=== PATIENT | male | born 1940 | race Caucasian/White ===

== ENCOUNTER 2021-05-11 23:24 | Inpatient (IN) ==
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
[2021-05-12 00:39] LABS: Basophils # (Auto) 0.01 K/mcL (0.00-0.30); Basophils % (Auto) 0.1 % (0.0-2.0); Eosinophils # (Auto) 0 K/mcL (0.00-0.70); Eosinophils % (Auto) 0 % (0.0-7.0); Hematocrit 33.8 % (40.1-51.0); Hemoglobin 11.7 g/dL (13.7-17.5); Lymphocytes % (Auto) 5.3 % (15.5-49.0); Mean Cell Volume 90.9 fL (80.0-100.0); Mean Corpuscular HGB Conc 34.6 g/dL (31.0-36.0); Mean Platelet Volume 11.4 fL (7.4-10.4); Monocytes # (Auto) 0.26 K/mcL (0.10-0.90); Monocytes % (Auto) 3.4 % (1.0-12.0); Neutrophils % (Auto) 91.2 % (38.0-78.0); Platelet Count 221 K/mcL (140-440); RBC 3.72 M/mcL (4.63-6.08); Red Cell Distribution Width 16.3 % (11.5-14.5); WBC 7.6 K/mcL (4.5-11.0)
[2021-05-12 01:06] LABS: ALT/SGPT 26 U/L (<40); AST/SGOT 66 U/L (<40); Albumin/Globulin Ratio 0.8 (1.0-2.3); Alkaline Phosphatase 102 U/L (39-117); Bilirubin,Total 1.1 mg/dL (0.1-1.0); Blood Urea Nitrogen 37 mg/dL (8-23); Calcium 8.3 mg/dL (8.6-10.4); Carbon Dioxide 17 mmol/L (22-30); Chloride 101 mmol/L (96-108); Globulin 3.8 gm/dL (2.2-3.7); Glomerular Filtration Rate 35; Glucose 141 mg/dL (70-105)
[2021-05-12] MEDS ORDERED: DEXAMETHASONE 10 MG/ML VIAL IV ONE (03:41)
[2021-05-12] MEDS ORDERED: GABAPENTIN 100 MG CAPSULE PO PRN (08:56)
[2021-05-12] MEDS ORDERED: ACETAMINOPHEN 325 MG TABLET PO PRN (08:58)
[2021-05-12] MEDS ORDERED: ONDANSETRON 4 MG/2 ML VIAL IV PRN (08:58)
[2021-05-12] MEDS ORDERED: DEXTROSE 31 GM ORAL.SUSP PO PRN (09:03)
[2021-05-12] MEDS ORDERED: DEXTROSE 50% 50 ML VIAL IV PRN (09:03)
[2021-05-12] MEDS ORDERED: IPRATROPIUM/ALBUTEROL 3 ML AMPUL.NEB NEB PRN (09:04)
[2021-05-12] MEDS ORDERED: guaiFENesin/DEXTROMETHORPHAN ORAL SOL PO PRN (09:04)
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
[2021-05-12] MEDS ORDERED: REMDESIVIR 200 MG in 0.9 % SODIUM CHLORIDE 250 ML IV ONE (10:00)
[2021-05-12 10:20] LABS: Basophils # (Auto) 0.01 K/mcL (0.00-0.30); Basophils % (Auto) 0.1 % (0.0-2.0); Eosinophils # (Auto) 0 K/mcL (0.00-0.70); Eosinophils % (Auto) 0 % (0.0-7.0); Hematocrit 34.2 % (40.1-51.0); Lymphocytes # (Auto) 0.37 K/mcL (1.50-4.80); Lymphocytes % (Auto) 4.4 % (15.5-49.0); Mean Cell Volume 89.3 fL (80.0-100.0); Mean Corpuscular HGB Conc 35.1 g/dL (31.0-36.0); Mean Platelet Volume 11.5 fL (7.4-10.4); Monocytes # (Auto) 0.28 K/mcL (0.10-0.90); Monocytes % (Auto) 3.3 % (1.0-12.0); Neutrophils % (Auto) 92.2 % (38.0-78.0); Platelet Count 228 K/mcL (140-440); RBC 3.83 M/mcL (4.63-6.08); Red Cell Distribution Width 16.6 % (11.5-14.5); WBC 8.4 K/mcL (4.5-11.0)
[2021-05-12] MEDS: DOCUSATE SODIUM 100 MG CAPSULE PO SCH ×2 (10:24→20:32)
[2021-05-12] MEDS: INSULIN NPH, HUMAN 1 UNIT/0.01 ML UNIT SQ SCH (10:24)
[2021-05-12] MEDS: CLOPIDOGREL 75 MG TABLET PO SCH (10:24)
[2021-05-12] MEDS: METOPROLOL TARTRATE 25 MG TABLET PO SCH ×2 (10:24→20:32)
[2021-05-12] MEDS: DILTIAZEM 120 MG CAP.XL.24H PO SCH (10:24)
[2021-05-12] MEDS: ENOXAPARIN 40 MG/0.4 ML SYRINGE SQ SCH ×2 (10:25→20:31)
[2021-05-12] MEDS: FLUTICASONE PROPIONATE SPRAY.NAS NS SCH ×2 (10:25→21:25)
[2021-05-12] MEDS: FINASTERIDE 5 MG TABLET PO SCH (10:25)
[2021-05-12 10:29] LABS: Lactate Dehydrogenase 419 U/L (135-225)
[2021-05-12 10:30] LABS: ALT/SGPT 27 U/L (<40); AST/SGOT 74 U/L (<40); Albumin 3.1 gm/dL (3.2-5.2); Albumin/Globulin Ratio 0.8 (1.0-2.3); Alkaline Phosphatase 108 U/L (39-117); Bilirubin,Total 1.1 mg/dL (0.1-1.0); Blood Urea Nitrogen 36 mg/dL (8-23); Calcium 8.4 mg/dL (8.6-10.4); Carbon Dioxide 18 mmol/L (22-30); Chloride 95 mmol/L (96-108); Globulin 3.8 gm/dL (2.2-3.7); Glomerular Filtration Rate 35; Glucose 231 mg/dL (70-105)
[2021-05-12 10:30] LABS: Hemoglobin A1C 7.4 % Hgb (4.0-6.0)
[2021-05-12 10:42] LABS: Ferritin 474.6 ng/mL (30.0-400.0)
[2021-05-12 11:07] LABS: Prothrombin Time 14.1 sec (11.9-14.5)
[2021-05-12] MEDS: INSULIN LISPRO 1 UNIT/0.01 ML UNIT SQ SCH ×3 (11:53→20:31)
[2021-05-12] MEDS: 0.9 % SODIUM CHLORIDE 10 ML SYRINGE IV SCH ×2 (12:12→21:45)
[2021-05-12] MEDS: FUROSEMIDE 20 MG TABLET PO SCH (16:30)
[2021-05-12] MEDS: OMEPRAZOLE 20 MG CAPSULE PO SCH (17:04)
[2021-05-12] MEDS: TAMSULOSIN 0.4 MG CAPSULE PO SCH (20:32)
[2021-05-12] MEDS: LISINOPRIL 10 MG TABLET PO SCH (20:32)
[2021-05-12] MEDS: SENNOSIDES 1 TABLET PO SCH (20:32)
[2021-05-12] MEDS: MONTELUKAST 10 MG TABLET PO SCH (20:32)
[2021-05-12] MEDS: ATORVASTATIN 40 MG TABLET PO SCH (20:33)
[2021-05-12] MEDS ORDERED: ZOLPIDEM 5 MG TABLET PO PRN (21:00)
[2021-05-12] MEDS ORDERED: INSULIN REGULAR, HUMAN 1 UNIT/0.01 ML UNIT SQ SCH (21:00)
[2021-05-12] MEDS: Dorzolamide-Timolol [Cosopt] 22.3-6.8 mg/mL drops OU SCH (21:25)
[2021-05-13] MEDS: 0.9 % SODIUM CHLORIDE 10 ML SYRINGE IV SCH ×3 (04:35→21:21)
[2021-05-13 06:52] LABS: Basophils # (Auto) 0.01 K/mcL (0.00-0.30); Basophils % (Auto) 0.1 % (0.0-2.0); Eosinophils # (Auto) 0 K/mcL (0.00-0.70); Eosinophils % (Auto) 0 % (0.0-7.0); Hematocrit 33.2 % (40.1-51.0); Hemoglobin 11.3 g/dL (13.7-17.5); Lymphocytes # (Auto) 0.45 K/mcL (1.50-4.80); Lymphocytes % (Auto) 5.7 % (15.5-49.0); Mean Cell Volume 88.3 fL (80.0-100.0); Mean Platelet Volume 11.5 fL (7.4-10.4); Monocytes # (Auto) 0.47 K/mcL (0.10-0.90); Monocytes % (Auto) 5.9 % (1.0-12.0); Neutrophils % (Auto) 88.3 % (38.0-78.0); Platelet Count 228 K/mcL (140-440); RBC 3.76 M/mcL (4.63-6.08); Red Cell Distribution Width 16.1 % (11.5-14.5)
[2021-05-13 07:23] LABS: ALT/SGPT 32 U/L (<40); AST/SGOT 78 U/L (<40); Albumin 2.8 gm/dL (3.2-5.2); Albumin/Globulin Ratio 0.7 (1.0-2.3); Alkaline Phosphatase 107 U/L (39-117); Bilirubin,Total 0.8 mg/dL (0.1-1.0); Blood Urea Nitrogen 38 mg/dL (8-23); Calcium 8.2 mg/dL (8.6-10.4); Carbon Dioxide 20 mmol/L (22-30); Chloride 100 mmol/L (96-108); Globulin 3.9 gm/dL (2.2-3.7); Glomerular Filtration Rate 43; Glucose 159 mg/dL (70-105)
[2021-05-13] MEDS: FUROSEMIDE 20 MG TABLET PO SCH ×2 (07:51→15:50)
[2021-05-13] MEDS: LEVOTHYROXINE 125 MCG TABLET PO SCH (07:51)
[2021-05-13] MEDS: OMEPRAZOLE 20 MG CAPSULE PO SCH ×2 (07:52→15:51)
[2021-05-13] MEDS: CLOPIDOGREL 75 MG TABLET PO SCH (09:25)
[2021-05-13] MEDS: DOCUSATE SODIUM 100 MG CAPSULE PO SCH ×2 (09:25→21:20)
[2021-05-13] MEDS: MULTIVIT,THER IRON,CA,FA & MIN 1 TABLET PO SCH (09:25)
[2021-05-13] MEDS: INSULIN NPH, HUMAN 1 UNIT/0.01 ML UNIT SQ SCH (09:26)
[2021-05-13] MEDS: ENOXAPARIN 40 MG/0.4 ML SYRINGE SQ SCH ×2 (09:29→21:19)
[2021-05-13] MEDS: DILTIAZEM 120 MG CAP.XL.24H PO SCH (09:33)
[2021-05-13] MEDS: METOPROLOL TARTRATE 25 MG TABLET PO SCH ×2 (09:36→20:03)
[2021-05-13] MEDS: INSULIN LISPRO 1 UNIT/0.01 ML UNIT SQ SCH ×4 (09:37→21:27)
[2021-05-13] MEDS: TADALAFIL 5 MG PO SCH (09:49)
[2021-05-13] MEDS: DEXAMETHASONE 10 MG/ML VIAL IV SCH (10:37)
[2021-05-13] MEDS: REMDESIVIR 100 MG in 0.9 % SODIUM CHLORIDE 250 ML IV SCH (10:38)
[2021-05-13] MEDS: Dorzolamide-Timolol [Cosopt] 22.3-6.8 mg/mL drops OU SCH ×2 (10:38→21:21)
[2021-05-13] MEDS: FLUTICASONE PROPIONATE SPRAY.NAS NS SCH ×2 (10:59→21:21)
--- NOTE | 2021-05-13 11:48 | Internal Med Progress Note ---
SUBJECTIVE Subjective Patient information: Note initiated : 05/13/21 at 11:45 am Service Date, if different from initiated Date: [] Patient: Juan Carlos Parada 80 y/o M admitted on 05/12/21 for SHORTNESS OF BREATH. Chief Complaint: [CoVID pneumonia] Interval history: History of present illness: Mr. Parada is a 80 year old M history of type 2 diabetes, CAD status post CABG x4, status post cardiac pacemaker placement, essential HTN, chronic kidney disease stage III, hypothyroidism, depression, presenting with 10-day history of general body weakness and dyspnea on exertions. He has been vaccinated against Covid with 2 shots by November 2020. He denies any recent travel or sick contact. Over the 10 days, he experienced gradual onset, gradually worsening general body weakness and dyspnea on exertions. He is also committing of nonproductive cough without any sputum productions. He is denying any respiratory wheezings. He denies any chest pain or muscle aches. He denies any subjective fever, chills, or diaphoresis. He was being tested positive for Covid in the ED. He was started on supplemental oxygen's on the floor. 05/13: Afebrile overnight. Been on supplemental oxygen up to 2L/min via nasal cannula. c/o SOB. c/o nonproductive cough. Denies sputum production. Denies wheezing. Denies chest pain. Denies fever or chills. Denies general body weakness. Constitutional Vitals: Vital Signs Temp Pulse Resp BP Pulse Ox 36.3 C 64 22 111/68 93 05/13/21 11:41 05/13/21 11:41 05/13/21 11:41 05/13/21 11:41 05/13/21 11:41 Period Temp Pulse Resp BP Sys/Meraz Pulse Ox Last 24 Hr 35.8 C-36.7 C 50-64 18-24 95-143/51-69 93-95 Intake and Output 05/12/21 05/13/21 05/13/21 21:59 05:59 13:59 Intake Total 400 550 Output Total 700 700 Balance -300 -150 Weight 104.326 kg Intake & Output: Intake & Output 05/12/21 05/13/21 05/13/21 21:59 05:59 13:59 Intake Total 400 550 Output Total 700 700 Balance -300 -150 Weight 104.326 kg Intake: Oral 400 550 Output: Urine Catheter Amount 400 Void Amount 700 300 Other: Meal Dinner Percent of Meal Consumed 50% Urine Appearance Clear Clear Urine Color Bright Yellow Dark Yellow Urine Odor Normal General appearance: cooperative and no acute distress Head Head exam: Present atraumatic and normocephalic Eye Eye exam: Present EOMI and PERRL ENT ENT exam: Present mucous membranes moist, normal exam and normal external ear exam Additional comments: Bilateral hard of hearing Nasal cannula in place Neck Neck exam: Present normal inspection; Absent lymphadenopathy, tenderness and thyromegaly Respiratory Respiratory exam: Present decreased breath sounds and rhonchi; Absent accessory muscle use, respiratory distress and wheezes Cardiovascular Cardiovascular exam: Present normal rate and rhythm; Absent JVD GI/Abdominal GI/Abdominal exam: Present normal bowel sounds and soft; Absent organomegaly and tenderness Rectal Rectal exam: Present deferred Extremities Exam Extremities exam: Present full ROM, normal capillary refill and normal inspection; Absent tenderness Neurological Exam Neurological exam: Present alert, CN II-XII intact and oriented X3; Absent motor sensory deficit Psychiatric Psychiatric exam: Present normal affect and normal mood; Absent anxious and depressed Skin Skin exam: Present dry and intact OBJ DATA Labs CBC & Chem 7: 05/13/21 05:27 05/13/21 05:27 Labs: Abnormal Lab Results 05/13/21 05/13/21 05/12/21 05:27 05:27 09:26 RBC 3.76 L Hgb 11.3 L Hct 33.2 L RDW 16.1 H MPV 11.5 H Neut % (Auto) 88.3 H Lymph % (Auto) 5.7 L Lymph # (Auto) 0.45 L Fibrinogen D-Dimer Sodium Chloride Carbon Dioxide 20 L BUN 38 H Creatinine 1.5 H Glucose 159 H Hemoglobin A1c Calcium 8.2 L Ferritin Total Bilirubin AST 78 H Lactate Dehydrogenase Troponin T C-Reactive Protein NT-Pro-B Natriuret Pep Albumin 2.8 L Globulin 3.9 H Albumin/Globulin Ratio 0.7 L Procalcitonin 0.27 H 05/12/21 05/12/21 05/12/21 09:26 09:26 09:21 RBC Hgb Hct RDW MPV Neut % (Auto) Lymph % (Auto) Lymph # (Auto) Fibrinogen 601 H D-Dimer 1.35 H Sodium Chloride Carbon Dioxide BUN Creatinine Glucose Hemoglobin A1c 7.4 H Calcium Ferritin 474.6 H Total Bilirubin AST Lactate Dehydrogenase 419 H Troponin T C-Reactive Protein 12.40 H NT-Pro-B Natriuret Pep Albumin Globulin Albumin/Globulin Ratio Procalcitonin 05/12/21 05/12/21 05/12/21 09:08 09:08 02:35 RBC 3.83 L Hgb 12.0 L Hct 34.2 L RDW 16.6 H MPV 11.5 H Neut % (Auto) 92.2 H Lymph % (Auto) 4.4 L Lymph # (Auto) 0.37 L Fibrinogen D-Dimer Sodium 128 L Chloride 95 L Carbon Dioxide 18 L BUN 36 H Creatinine 1.8 H Glucose 231 H Hemoglobin A1c Calcium 8.4 L Ferritin Total Bilirubin 1.1 H AST 74 H Lactate Dehydrogenase Troponin T 0.06 H* C-Reactive Protein NT-Pro-B Natriuret Pep Albumin 3.1 L Globulin 3.8 H Albumin/Globulin Ratio 0.8 L Procalcitonin 05/11/21 05/11/21 05/11/21 23:52 23:52 23:52 RBC 3.72 L Hgb 11.7 L Hct 33.8 L RDW 16.3 H MPV 11.4 H Neut % (Auto) 91.2 H Lymph % (Auto) 5.3 L Lymph # (Auto) 0.40 L Fibrinogen D-Dimer Sodium Chloride Carbon Dioxide 17 L BUN 37 H Creatinine 1.8 H Glucose 141 H Hemoglobin A1c Calcium 8.3 L Ferritin Total Bilirubin 1.1 H AST 66 H Lactate Dehydrogenase Troponin T 0.05 H* C-Reactive Protein NT-Pro-B Natriuret Pep 2996.0 H Albumin 3.0 L Globulin 3.8 H Albumin/Globulin Ratio 0.8 L Procalcitonin Meds: Medications Acetaminophen (Acetaminophen 325 Mg Tablet) 650 mg PO Q6HP PRN; Protocol PRN Reason: Per Pain Protocol/Fever > 101 Albuterol/Ipratropium (Ipratropium/Albuterol 3 Ml Ampul.Neb) 3 ml NEB Q4HP PRN PRN Reason: Shortness Of Breath Atorvastatin Calcium (Atorvastatin 40 Mg Tablet) 40 mg PO HS [facility] Last Admin: 05/12/21 20:33 Dose: 40 mg Documented by: Clopidogrel Bisulfate (Clopidogrel 75 Mg Tablet) 75 mg PO QDAY [facility] Last Admin: 05/13/21 09:25 Dose: 75 mg Documented by: Dexamethasone (Dexamethasone 10 Mg/Ml Vial) 6 mg IV DAILY [facility] Last Admin: 05/13/21 10:37 Dose: 6 mg Documented by: Dextrose (Dextrose 50% 50 Ml Vial) 0 ml IV UD PRN PRN Reason: Hypoglycemia Diagnostic Test (Pha) (Accu-Chek 1 Each Strip) 1 each FS ACHS [facility] Last Admin: 05/13/21 02:05 Dose: 1 each Documented by: Diltiazem HCl (Diltiazem 120 Mg Cap.Xl.24h) 120 mg PO QAM [facility] Last Admin: 05/13/21 09:33 Dose: 120 mg Documented by: Docusate Sodium (Docusate Sodium 100 Mg Capsule) 100 mg PO BID [facility] Last Admin: 05/13/21 09:25 Dose: 100 mg Documented by: Enoxaparin Sodium (Enoxaparin 40 Mg/0.4 Ml Syringe) 40 mg SQ BID [facility] Last Admin: 05/13/21 09:29 Dose: 40 mg Documented by: Finasteride (Finasteride 5 Mg Tablet) 5 mg PO [facility] Fluticasone Propionate (Fluticasone Propionate [place].Sandip) 1 spray NS BID [facility] Last Admin: 05/13/21 10:59 Dose: Not Given Documented by: Furosemide (Furosemide 20 Mg Tablet) 20 mg PO BIDD [facility] Last Admin: 05/13/21 07:51 Dose: 20 mg Documented by: Gabapentin (Gabapentin 100 Mg Capsule) 100 mg PO DAILYP PRN PRN Reason: Pain Glucose (Dextrose 31 Gm Oral.Susp) 15 gm PO PRN PRN PRN Reason: Hypoglycemia Guaifenesin (Guaifenesin/Dextromethorphan Oral Adia) 10 ml PO Q4HP PRN PRN Reason: Cough REMDESIVIR 100 mg/ Sodium (Chloride) 250 mls @ 500 mls/hr IV DAILY@1100 [facility] Stop: 05/16/21 11:29 Last Admin: 05/13/21 10:38 Dose: 500 mls/hr Documented by: Insulin Human Lispro (Insulin Lispro 1 Unit/0.01 Ml Unit) 0 unit SQ ACHS [facility]; Protocol Last Admin: 05/13/21 09:37 Dose: 2 unit Documented by: Insulin Human NPH (Insulin Nph, Human 1 Unit/0.01 Ml Unit) 50 unit SQ QAM [facility] Last Admin: 05/13/21 09:26 Dose: 50 unit Documented by: Insulin Human Regular (Insulin Regular, Human 1 Unit/0.01 Ml Unit) 10 unit SQ QHS [facility] Last Admin: 05/12/21 20:28 Dose: 10 unit Documented by: Iron Carb/Multivit/[place]/Folic Acid (Multivit,Ther Iron,Ca,Fa & Min 1 Tablet) 1 tab PO DAILY [facility] Last Admin: 05/13/21 09:25 Dose: 1 tab Documented by: Levothyroxine Sodium (Levothyroxine 125 Mcg Tablet) 125 mcg PO QAMAC [facility] Last Admin: 05/13/21 07:51 Dose: 125 mcg Documented by: Lisinopril (Lisinopril 10 Mg Tablet) 10 mg PO [facility] Last Admin: 05/12/21 20:32 Dose: 10 mg Documented by: Metoprolol Tartrate (Metoprolol Tartrate 25 Mg Tablet) 25 mg PO BID [facility] Last Admin: 05/13/21 09:36 Dose: 25 mg Documented by: Montelukast Sodium (Montelukast 10 Mg Tablet) 10 mg PO QHS [facility] Last Admin: 05/12/21 20:32 Dose: 10 mg Documented by: Omeprazole (Omeprazole 20 Mg Capsule) 40 mg PO BIDAC [facility] Last Admin: 05/13/21 07:52 Dose: 40 mg Documented by: Ondansetron HCl (Ondansetron 4 Mg/2 Ml Vial) 4 mg IV Q6HP PRN PRN Reason: Nausea And Vomiting Dorzolamide-Timolol [Cosopt] 22.3-6.8 Mg /Ml Drops 1 dose OU BID [facility] Last Admin: 05/13/21 10:38 Dose: 1 dose Documented by: Tadalafil 5 Mg (Tablets) 1 dose PO DAILY [facility] Last Admin: 05/13/21 09:49 Dose: Not Given Documented by: Senna (Sennosides 1 Tablet) 2 tab PO [facility] Last Admin: 05/12/21 20:32 Dose: 2 tab Documented by: Sodium Chloride (0.9 % Sodium Chloride 10 Ml Syringe) 10 ml IV Q8 [facility] Last Admin: 05/13/21 04:35 Dose: 10 ml Documented by: Tamsulosin HCl (Tamsulosin 0.4 Mg Capsule) 0.4 mg PO QHS [facility] Last Admin: 05/12/21 20:32 Dose: 0.4 mg Documented by: Zolpidem Tartrate (Zolpidem 5 Mg Tablet) 5 mg PO HSP PRN PRN Reason: Insomnia A/P Assessment and plan (1) Depression: Status: Chronic (2) Pacemaker: Status: Chronic Comment: 2009 (3) BPH loc w urin obs/LUTS: Status: Chronic Comment: Retains between 200 to 400 cc chronically, does better on medication (4) Hypertension, essential: Status: Chronic (5) Diabetes mellitus with neuropathy: Status: Chronic Qualifiers: Diabetes mellitus type: type 2 Diabetes mellitus lobsterman insulin use: with lobsterman use Qualified Code(s): E11.40 - Type 2 diabetes mellitus with diabetic neuropathy, unspecified; Z79.4 - senior living (current) use of insulin (6) Hypothyroidism: Status: Acute (7) COVID-19: Status: Acute (8) CKD (chronic kidney disease) stage 3, GFR 30-59 ml/min: Status: Chronic Qualifiers: Chronic kidney disease stage 3 subtype: stage 3a (GFR 45-59) Qualified Code(s): N18.31 - Chronic kidney disease, stage 3a Narrative A/P Narrative: Assessment and Plans: 1. CoVID pneumonia: Stays in inpatient med surg with telemetry Isolation: airborne and contact Inflammatory markers Blood culture X2, no growth to date Remdesivir Dexamethasone Lovenox Lasix Robitussin DM PRN cough DuoNEB NEB q4hr PRN wheezing or SOB Tylenlol PRN fever cbc w/ auto diff in the AM to trend WBC Supplemental oxygen titrate to keep spo2 >=92% 2. h/o CAD s/p CABG X4 and pacemaker placement: Plavix Metoprolol tartrate Diltiazem Lisinopril Statin 3. Essential HTN: Metoprolol tartrate Diltiazem Lisinopril Statin 4. Hypothyroidism: Continue thyroid replacement therapy 5. BPH: Finasteride Tamsulosin 6. T2DM: HgA1c Hold any oral hypoglycemics Insulin home regimen Correctional scale insulin AC HS Accu Chek AC HS Hypoglycemia protocol Diabetic diet 7. CKD stage III: Avoid nephrotoxic agents Saline lock CMP daily to trend kidney functions Lisinopril GI ppx: continue oral PPI from home regimen DVT ppx: Lovenox Code status: Full Prognosis: guarded Disposition: inpatient med surg; PT OT evaluation for placement planning Time Spent With Patient Time: Total time spent is greater than 50% in coordination of care (as documented) at patient's floor/unit and/or counseling patient: QUALITY VTE Deep Vein Thrombosis/Pulmonary Embolism Present on Admission: No
[2021-05-13] MEDS: FINASTERIDE 5 MG TABLET PO SCH (17:20)
[2021-05-13] MEDS: LISINOPRIL 10 MG TABLET PO SCH (20:04)
[2021-05-13] MEDS ORDERED: FINASTERIDE 5 MG TABLET PO SCH (21:00)
[2021-05-13] MEDS: TAMSULOSIN 0.4 MG CAPSULE PO SCH (21:20)
[2021-05-13] MEDS: ATORVASTATIN 40 MG TABLET PO SCH (21:20)
[2021-05-13] MEDS: MONTELUKAST 10 MG TABLET PO SCH (21:20)
[2021-05-13] MEDS: SENNOSIDES 1 TABLET PO SCH (21:20)
[2021-05-14] MEDS: 0.9 % SODIUM CHLORIDE 10 ML SYRINGE IV SCH ×2 (08:58→13:49)
[2021-05-14] MEDS: DOCUSATE SODIUM 100 MG CAPSULE PO SCH (08:59)
[2021-05-14] MEDS: MULTIVIT,THER IRON,CA,FA & MIN 1 TABLET PO SCH (08:59)
[2021-05-14] MEDS: LEVOTHYROXINE 125 MCG TABLET PO SCH (08:59)
[2021-05-14] MEDS: OMEPRAZOLE 20 MG CAPSULE PO SCH (08:59)
[2021-05-14] MEDS: FUROSEMIDE 20 MG TABLET PO SCH (08:59)
[2021-05-14] MEDS: CLOPIDOGREL 75 MG TABLET PO SCH (08:59)
[2021-05-14] MEDS: DEXAMETHASONE 10 MG/ML VIAL IV SCH (09:00)
[2021-05-14] MEDS: METOPROLOL TARTRATE 25 MG TABLET PO SCH (09:00)
[2021-05-14] MEDS: DILTIAZEM 120 MG CAP.XL.24H PO SCH (09:00)
[2021-05-14] MEDS: ENOXAPARIN 40 MG/0.4 ML SYRINGE SQ SCH (09:01)
[2021-05-14] MEDS: FLUTICASONE PROPIONATE SPRAY.NAS NS SCH (09:01)
[2021-05-14 09:04] LABS: Basophils # (Auto) 0.01 K/mcL (0.00-0.30); Basophils % (Auto) 0.1 % (0.0-2.0); Eosinophils # (Auto) 0 K/mcL (0.00-0.70); Eosinophils % (Auto) 0 % (0.0-7.0); Hematocrit 35.5 % (40.1-51.0); Hemoglobin 12.5 g/dL (13.7-17.5); Lymphocytes # (Auto) 0.45 K/mcL (1.50-4.80); Lymphocytes % (Auto) 5.4 % (15.5-49.0); Mean Cell Volume 87.7 fL (80.0-100.0); Mean Corpuscular HGB Conc 35.2 g/dL (31.0-36.0); Mean Platelet Volume 11.6 fL (7.4-10.4); Monocytes # (Auto) 0.59 K/mcL (0.10-0.90); Neutrophils % (Auto) 87.5 % (38.0-78.0); Platelet Count 274 K/mcL (140-440); RBC 4.05 M/mcL (4.63-6.08); Red Cell Distribution Width 16.1 % (11.5-14.5); WBC 8.4 K/mcL (4.5-11.0)
[2021-05-14] MEDS: Dorzolamide-Timolol [Cosopt] 22.3-6.8 mg/mL drops OU SCH (09:06)
[2021-05-14] MEDS: TADALAFIL 5 MG PO SCH (09:06)
[2021-05-14 09:18] LABS: ALT/SGPT 48 U/L (<40); AST/SGOT 93 U/L (<40); Albumin 3.2 gm/dL (3.2-5.2); Albumin/Globulin Ratio 0.9 (1.0-2.3); Alkaline Phosphatase 104 U/L (39-117); Bilirubin,Total 0.9 mg/dL (0.1-1.0); Blood Urea Nitrogen 37 mg/dL (8-23); Calcium 8.3 mg/dL (8.6-10.4); Carbon Dioxide 20 mmol/L (22-30); Chloride 98 mmol/L (96-108); Globulin 3.7 gm/dL (2.2-3.7); Glomerular Filtration Rate 51; Glucose 296 mg/dL (70-105)
[2021-05-14] MEDS: INSULIN LISPRO 1 UNIT/0.01 ML UNIT SQ SCH ×2 (09:57→14:04)
[2021-05-14] MEDS ORDERED: DEXTROSE 31 GM ORAL.SUSP PO PRN (12:05)
[2021-05-14] MEDS ORDERED: DEXTROSE 50% 50 ML VIAL IV PRN (12:05)
[2021-05-14] MEDS: REMDESIVIR 100 MG in 0.9 % SODIUM CHLORIDE 250 ML IV SCH (12:20)
--- NOTE | 2021-05-14 12:24 | Discharge Summary ---
Discharge Provider Provider Patient information: Note initiated : 05/14/21 at 12:21 pm Service Date, if different from initiated Date: [] Patient: Juan Carlos Parada 80 y/o M admitted on 05/12/21 for SHORTNESS OF BREATH. Chief Complaint: [CoVID pneumonia] Date of admission: 05/12/21 04:25 Discharge date: 05/14/21 Primary care physician: Bear Sim MD Consults: 05/12/21 Consult to Physician [CONS] Stat Comment: Consulting Provider: Rosalio Landeros Reason For Exam: Physician to Consult Discharge Meds Discharge Medications Home Medications atorvastatin 40 mg PO HS 07/26/16 [History Confirmed 05/12/21 Last Taken 0 03/05/19] levothyroxine 125 mcg PO QAMAC 07/26/16 [History Confirmed 05/12/21 Last Taken 02/13/20] hkdynfwa-awh-aidh fum-folic ac 1 each PO QDAY 07/26/16 [History Confirmed 05/12/21 Last Taken 03/05/19] diltiazem HCl 120 mg capsule,extended release 24 hr 120 mg PO QAM cap 05/28/18 [History Confirmed 05/12/21 Last Taken 03/06/19] finasteride 5 mg tablet 5 mg PO QDAY #30 tab 06/29/20 [Rx Confirmed 05/12/21 Last Taken Unknown] montelukast 10 mg tablet 10 mg PO QHS 10/28/20 [History Confirmed 05/12/21 Last Taken Unknown] tadalafil 5 mg tablet 5 mg PO QDAY #30 tab 11/12/20 [Rx Confirmed 05/12/21 Last Taken Unknown] tamsulosin 0.4 mg capsule 0.4 mg PO QHS #90 cap 02/15/21 [Rx Confirmed 05/12/21 Last Taken Unknown] clopidogrel 75 mg tablet 75 mg PO QDAY 05/11/21 [History Confirmed 05/12/21 Last Taken Unknown] dorzolamide 22.3 mg-timolol 6.8 mg/mL eye drops 1 drp OPHTHALMIC (EYE) BID 05/11/21 [History Confirmed 05/12/21 Last Taken Unknown] enalapril maleate 10 mg tablet 10 mg PO QHS 05/11/21 [History Confirmed 05/12/21 Last Taken Unknown] fluticasone propionate 50 mcg/actuation nasal spray,suspension See Rx Instructions INTRANASAL BID #16 g 05/11/21 [Rx Confirmed 05/12/21 Last Taken Unknown] gabapentin 100 mg capsule 100 mg PO QDAY PRN cap 05/11/21 [History Confirmed 05/12/21 Last Taken Unknown] insulin NPH isoph U-100 human 100 unit/mL subcutaneous suspension 50 unit SUBCUT QAM ml 05/11/21 [History Confirmed 05/12/21 Last Taken Unknown] insulin regular human 100 unit/mL injection solution 10 unit SUBCUT QHS ml 05/11/21 [History Confirmed 05/12/21 Last Taken Unknown] metoprolol tartrate 25 mg tablet 25 mg PO BID tab 05/11/21 [History Confirmed 05/12/21 Last Taken Unknown] omeprazole 40 mg capsule,delayed release 40 mg PO BID cap 05/11/21 [History Confirmed 05/12/21 Last Taken Unknown] diltiazem HCl [Cartia XT] 120 mg PO DAILY 05/12/21 [History Confirmed 05/12/21 Last Taken Unknown] COURSE Hospital Course Hospital course: Patient was admitted on May 12, 2021 for Covid pneumonia. Supplemental oxygen's, remdesivir, dexamethasone, Lovenox, Lasix, were all provided Covid specific treatment. His diabetes will also be managed with insulin therapy. He developed an episode of hypoglycemia with blood sugar 29 during the afternoon of the day to hospitalizations and at that point any scheduled insulin were discontinued and patient was only relying on sliding scale insulin. By day 3 hospitalizations, patient has been tolerating room air for about 12 hours. He has reached clinical stability, and the decision was made to discharge patient home with instructions to follow-up with primary care physician within 2 weeks. All questions were answered prior to patient being physically discharged. Discharge diagnosis: CoVID pneumonia Time Spent with Patient Time attestation: Total time spent providing and/or coordinating discharge services: Patient was admitted on May 12, 2021 for Covid pneumonia. Supplemental oxygen's, remdesivir, dexamethasone, Lovenox, Lasix, were all provided Covid specific treatment. His diabetes will also be managed with insulin therapy. He developed an episode of hypoglycemia with blood sugar 29 during the afternoon of the day to hospitalizations and at that point any scheduled insulin were discontinued and patient was only relying on sliding scale insulin. By day 3 hospitalizations, patient has been tolerating room air for about 12 hours. He has reached clinical stability, and the decision was made to discharge patient home with instructions to follow-up with primary care physician within 2 weeks. All questions were answered prior to patient being physically discharged. EXAM Constitutional Vitals: Temp Pulse Resp BP Pulse Ox 36.2 C 53 L 20 117/63 95 05/14/21 11:41 05/14/21 11:41 05/14/21 11:41 05/14/21 11:41 05/14/21 11:41 General appearance: cooperative and no acute distress Head Head exam: Present atraumatic and normocephalic Eye Eye exam: Present EOMI and PERRL ENT ENT exam: Present mucous membranes moist, normal exam and normal external ear exam Additional comments: Bilateral hard of hearing Neck Neck exam: Present normal inspection; Absent lymphadenopathy, tenderness and thyromegaly Respiratory Respiratory exam: Absent accessory muscle use, respiratory distress and wheezes Cardiovascular Cardiovascular exam: Present normal rate and rhythm; Absent JVD GI/Abdominal GI/Abdominal exam: Present normal bowel sounds and soft; Absent organomegaly and tenderness Rectal Rectal exam: Present deferred Extremities Exam Extremities exam: Present full ROM, normal capillary refill and normal inspection; Absent tenderness Neurological Exam Neurological exam: Present alert, CN II-XII intact and oriented X3; Absent motor sensory deficit Psychiatric Psychiatric exam: Present normal affect and normal mood; Absent anxious and depressed Skin Skin exam: Present dry and intact Discharge Data Data Completed and Pending Labs on day of discharge: Labs from last 24 hours 05/14/21 05/14/21 08:06 08:06 WBC 8.4 RBC 4.05 L Hgb 12.5 L Hct 35.5 L MCV 87.7 MCH 30.9 MCHC 35.2 RDW 16.1 H Plt Count 274 MPV 11.6 H Neut % (Auto) 87.5 H Lymph % (Auto) 5.4 L Delta % (Auto) 7.0 Eos % (Auto) 0 Baso % (Auto) 0.1 Lymph # (Auto) 0.45 L Delta # (Auto) 0.59 Eos # (Auto) 0 Baso # (Auto) 0.01 Absolute Neutrophils 7.33 Sodium 133 Potassium 4.4 Chloride 98 Carbon Dioxide 20 L Anion Gap 15.0 BUN 37 H Creatinine 1.3 H GFR Calculation 51 Glucose 296 H Calcium 8.3 L Magnesium 2.0 Total Bilirubin 0.9 AST 93 H ALT 48 H Alkaline Phosphatase 104 Total Protein 6.9 Albumin 3.2 Globulin 3.7 Albumin/Globulin Ratio 0.9 L Preliminary micro results at discharge 05/12/21 09:29 Blood Culture - Preliminary Blood 05/12/21 09:24 Blood Culture - Preliminary Blood Discharge Plan Patient/Caregiver Discharge Instructions Activity: increase activity as tolerated Diet: Consistent Carbohydrate Prescriptions: Continued finasteride 5 mg tablet 5 mg PO QDAY Qty: 30 RF: 11 tadalafil 5 mg tablet 5 mg PO QDAY Qty: 30 RF: 11 tamsulosin 0.4 mg capsule 0.4 mg PO QHS Qty: 90 RF: 3 diltiazem HCl [Cartia XT] 120 mg capsule,extended release 24hr 120 mg PO QAM RF: 0 dorzolamide-timolol [Cosopt] 22.3-6.8 mg/mL drops 1 drp ophthalmic (eye) BID RF: 0 gabapentin 100 mg capsule 100 mg PO QDAY PRN (Reason: Pain) RF: 0 omeprazole 40 mg capsule,delayed release(DR/EC) 40 mg PO BID RF: 0 fluticasone propionate 50 mcg/actuation spray,suspension See Rx Instructions intranasal BID Qty: 16 RF: 0 atorvastatin 40 MG tablet 40 mg PO HS RF: 0 levothyroxine 125 MCG tablet 125 mcg PO QAMAC RF: 0 rcqbzjjc-qme-cluh fum-folic ac 1 EACH tablet 1 each PO QDAY RF: 0 clopidogrel 75 mg tablet 75 mg PO QDAY RF: 0 insulin NPH isoph U-100 human 100 unit/mL suspension 50 unit subcut QAM RF: 0 enalapril maleate 10 mg tablet 10 mg PO QHS RF: 0 metoprolol tartrate 25 mg tablet 25 mg PO BID RF: 0 insulin regular human 100 unit/mL solution 10 unit subcut QHS RF: 0 diltiazem HCl [Cartia XT] 120 mg Capsule,Extended Release 24hr 120 mg PO DAILY RF: 0 montelukast [Singulair] 10 mg tablet 10 mg PO QHS RF: 0 Follow Up Plan Follow up with: Bear Sim MD [Primary Care Provider] - Patient Disposition: Home, Self-Care Rehab Potential: Good I certify that the patient requires SNF services: No Overall status at discharge: patient is back to baseline Discharge Orders: Discharge Order (Routine); Ordered 05/14/21 Ordered By: Rosalio ORTIZ VTE Deep Vein Thrombosis/Pulmonary Embolism Present on Admission: No
[2021-05-14] MEDS ORDERED: INSULIN LISPRO 1 UNIT/0.01 ML UNIT SQ SCH (17:00)
[2021-05-14] MEDS ORDERED: INSULIN GLARGINE, HUMAN 1 UNIT/0.01 ML SQ SCH (21:00)
--- NOTE | 2021-05-24 10:54 | EKG ---
[facility] Test Date: 2021-05-11 Pat Name: Juan Carlos Parada Department: ED Room: Gender: Male Assembler Cards And Announcements: [facility] : 1940 Requested By: Kirby Sunshine Order Number: [id number] Reading MD: Holden Recio Measurements Intervals [place] Rate: 52 P: PA: QRS: 71 QRSD: 108 T: 86 QT: 440 QTc: 410 Interpretive Statements ACCELERATED JUNCTIONAL ESCAPE RHYTHM LOW VOLTAGE IN FRONTAL LEADS Electronically Signed On 05-24-2021 10:54:42 PDT by Holden Recio /[email or web address]/[id number]
--- NOTE | 2021-05-24 12:19 | EKG ---
[facility] Test Date: 2021-05-13 Pat Name: Juan Carlos Parada Department: [facility] Room: 106 Gender: Male Health Care Liaison: : 1940 Requested By: Rosalio Landeros Order Number: [id number] Reading MD: Holden Recio Measurements Intervals [place] Rate: 113 P: MA: QRS: 135 QRSD: 228 T: QT: QTc: 0 Interpretive Statements AFIB/FLUT, V-PACED COMPLEXES compared to prior -uncertain rhythm, not pacing Electronically Signed On 05-24-2021 12:19:24 PDT by Holden Recio /[email or web address]/[id number]
== END 2021-05-14 14:17 | disposition home or self-care (01) | DRG 177 ==
LOC: ED 23:24 → MEDSUR 05-12 04:25
PROVIDERS: ADMIT Internal Medicine; ATTEND Internal Medicine